=== PATIENT | female | born 1970 | race Caucasian/White ===

== ENCOUNTER 2017-10-27 12:24 | Emergency (ER) | payer OTHER ==
[2017-10-27 12:35] VITALS: TEMP 98; BMI 28.3
--- NOTE | 2017-10-27 13:06 | PDOC ---
Attending Attestation - Resident Resident Name: Emiliano Hurtado - HPI HPI: 10/27/17 17:07 Pt presents to the ED complaining of migraine that is consistent with, but worse than her typical migraine. Pain is graudal onset, frontal and severe. + photophobia. Denies fevers, but does complain of vomiting. Longstanding history of chronic migraine. Will check labs and * - Physicial Exam PE: 10/27/17 18:19 Agree with resident exam. Patient is alert and oriented. Lungs are clear. Heart has regular rate and rhythm. Neurologically intact. 10/27/17 18:25 - Medical Decision Making 10/27/17 18:30 Pt presents to the ED complaining of headache that is similar to her chronic migraine. Labs are within normal limits except for TSH. pain is resolved after reglan, toradol and benadryl. Will discharge home with PMd follow up.
[2017-10-27] MEDS ORDERED: SODIUM CHLORIDE 1,000 ML IV STA (13:18)
[2017-10-27] MEDS ORDERED: METOCLOPRAMIDE HCL INJECTION 10 MG/2 ML VIAL IVPUSH ONE ×2 (13:19→15:56)
[2017-10-27] MEDS ORDERED: KETOROLAC TROMETHAMINE 30 MG/1 ML VIAL IVPUSH ONE (13:19)
[2017-10-27] MEDS ORDERED: METOCLOPRAMIDE HCL INJECTION 10 MG/2 ML VIAL ONE ×2 (13:40→16:52)
[2017-10-27] MEDS ORDERED: KETOROLAC TROMETHAMINE 30 MG/1 ML VIAL ONE (13:40)
[2017-10-27 14:06] LABS: BASO % 0.7 % (0-2.0); EOS % 0.7 % (0-4.5); HEMOGLOBIN 12.5 GM/dL (10.7-15.3); MCH 30.1 pg (25.7-33.7); MEAN CELL VOLUME 91.2 fl (80-96); MEAN PLT VOLUME 7.7 fl (7.5-11.1); MONO % 5.8 % (3.8-10.2); NEUT % 75.8 % (42.8-82.8); PLATELET COUNT 427 K/MM3 (134-434); RBC 4.16 M/mm3 (3.60-5.2); RDW 14.4 % (11.6-15.6); WHITE BLOOD COUNT 9.1 K/mm3 (4.0-10.0)
[2017-10-27 14:25] LABS: INR 0.95 (0.82-1.09); PROTHROMBIN TIME (PATIENT) 10.7 SEC (9.98-11.88)
[2017-10-27 14:29] LABS: ALBUMIN 3.4 g/dl (3.4-5.0); ANION GAP 10 (8-16); BILIRUBIN,TOTAL 0.2 mg/dL (0.2-1.0); BLOOD UREA NITROGEN 12 mg/dL (7-18); CALCIUM 9.4 mg/dL (8.5-10.1); CHLORIDE 108 mmol/L (98-107); CO2 23 mmol/L (21-32); CREATININE 0.9 mg/dL (0.55-1.02); GLUCOSE,RANDOM 83 mg/dL (74-106); MAGNESIUM 2.6 mg/dL (1.8-2.4); POTASSIUM 4.2 mmol/L (3.5-5.1); SGOT/AST 19 U/L (15-37); SGPT/ALT 29 U/L (12-78); SODIUM 141 mmol/L (136-145); TOT PROT 7.4 g/dl (6.4-8.2)
[2017-10-27 14:32] LABS: ALK PHOS 90 U/L (45-117)
[2017-10-27] MEDS ORDERED: DEXAMETHASONE SOD PHOSPHATE 4 MG/1 ML VIAL IVPUSH ONE (15:57)
--- NOTE | 2017-10-27 15:58 | PDOC ---
History of Present Illness - General Chief Complaint: Headache Stated Complaint: HEADACHE Time Seen by Provider: 10/27/17 13:00 History Source: Patient Exam Limitations: No Limitations - History of Present Illness Initial Comments: 10/27/17 15:52 Patient is a 47F with history of migraines, and hypothyroidism is here today for headache and chest pain. The headache started three days ago and onset gradually. Patient states the headache is located around her right eye with associated photophobia and sound sensitivity. Denies nausea and vomiting. She is also complaining of chest pain for the past 2 days, waxing and waning in severity. It's located on the left side of her chest, worse with inspiration. No changes with rest or activity. Not tender to palpation. No history of blood clots. No swelling in her legs. No recent immobilization. No estrogen use. Patient states that she is very stressed from long hours at work. Past History - Past Medical History Allergies/Adverse Reactions: Allergies Allergy/AdvReac Type Severity Reaction Status Date / Time No Known Drug Allergies Allergy Verified 09/02/16 12:42 Home Medications: Ambulatory Orders Levothyroxine [Synthroid -] 175 mcg PO DAILY #0 tablet 07/24/13 Anemia: No COPD: No GI Disorders: Yes (Ulcer 10 yrs ago, taking nexium) HTN: Yes Thyroid Disease: Yes - Surgical History Cholecystectomy: Yes (10 yrs ago) - Immunization History Immunization Up to Date: Yes - Suicide/Smoking/Psychosocial Hx Smoking Status: Yes Smoking History: Current every day smoker Have you smoked in the past 12 months: Yes Number of Cigarettes Smoked Daily: 20 Information on smoking cessation initiated: No 'Breaking Loose' booklet given: 09/02/16 Hx Alcohol Use: No Drug/Substance Use Hx: No Substance Use Type: None Hx Substance Use Treatment: No Review of Systems - Review of Systems Comments:: 10/27/17 16:07 GENERAL/CONSTITUTIONAL: No fever or chills. No weakness. HEAD, EYES, EARS, NOSE AND THROAT: No change in vision. No sore throat. CARDIOVASCULAR: Positive for chest pain. Negative for shortness of breath RESPIRATORY: No cough, wheezing, or hemoptysis. GASTROINTESTINAL: No nausea, vomiting, diarrhea or constipation. GENITOURINARY: No dysuria, frequency, or change in urination. SKIN: No rash NEUROLOGIC: Positive for headache. Negative for vertigo, loss of consciousness, or change in strength/sensation. ENDOCRINE: No increased thirst. No abnormal weight change ALLERGIC/IMMUNOLOGIC: No hives or skin allergy. *Physical Exam - Vital Signs Last Vital Signs Temp Pulse Resp BP Pulse Ox 98.0 F 90 17 126/88 100 10/27/17 12:32 10/27/17 12:32 10/27/17 12:32 10/27/17 12:32 10/27/17 12:32 - Physical Exam Comments: 10/27/17 16:09 GENERAL: Awake, alert, and fully oriented, tearful PSYCH: Denies SI/HI HEAD: No signs of trauma, normocephalic, atraumatic EYES: PERRLA, EOMI, sclera anicteric, conjunctiva clear ENT: Auricles normal inspection, hearing grossly normal, nares patent, oropharynx clear without exudates. Moist mucosa LUNGS: No distress, speaks full sentences, clear to auscultation bilaterally HEART: Regular rate and rhythm, normal S1 and S2, no murmurs, rubs or gallops, peripheral pulses normal and equal bilaterally. EXTREMITIES: Normal inspection, Normal range of motion, no edema. No clubbing or cyanosis. NEUROLOGICAL: Cranial nerves II through XII grossly intact. Normal speech, normal gait, no focal sensorimotor deficits SKIN: Warm, Dry, normal turgor, no rashes or lesions noted. ED Treatment Course - LABORATORY CBC & Chemistry Diagram: 10/27/17 13:37 10/27/17 13:37 - ADDITIONAL ORDERS Additional order review: Laboratory Results 10/27/17 10/27/17 10/27/17 14:36 13:37 13:37 PT with INR 10.70 INR 0.95 Sodium 141 Potassium 4.2 Chloride 108 H Carbon Dioxide 23 Anion Gap 10 BUN 12 Creatinine 0.9 Creat Clearance w eGFR > 60 Random Glucose 83 Calcium 9.4 Magnesium 2.6 H Total Bilirubin 0.2 AST 19 ALT 29 Alkaline Phosphatase 90 Creatine Kinase 94 Troponin I < 0.02 Total Protein 7.4 Albumin 3.4 TSH Urine HCG, Qual Negative 10/27/17 13:30 PT with INR INR Sodium Potassium Chloride Carbon Dioxide Anion Gap BUN Creatinine Creat Clearance w eGFR Random Glucose Calcium Magnesium Total Bilirubin AST ALT Alkaline Phosphatase Creatine Kinase Troponin I Total Protein Albumin TSH 14.10 H Urine HCG, Qual 10/27/17 13:37 RBC 4.16 MCV 91.2 MCHC 33.0 RDW 14.4 MPV 7.7 Neutrophils % 75.8 Lymphocytes % 17.0 Monocytes % 5.8 Eosinophils % 0.7 Basophils % 0.7 - RADIOLOGY Radiology Studies Ordered: Category Date Time Status CHEST PA & LAT [RAD] Stat Radiology 10/27/17 13:18 Ordered - Medications Given in the ED: ED Medications Discontinued Medications Generic Name Dose Route Start Last Admin Trade Name Ashley PRN Reason Stop Dose Admin Diphenhydramine HCl 25 mg 10/27/17 13:19 10/27/17 14:16 Benadryl Injection - IVPB 10/27/17 13:20 25 mg ONCE ONE Administration Sodium Chloride 1,000 mls @ 1,000 mls/hr 10/27/17 13:18 10/27/17 13:45 Normal Saline - IV 10/27/17 14:17 1,000 mls/hr ASDIR STA Administration Ketorolac Tromethamine 30 mg 10/27/17 13:19 10/27/17 13:52 Toradol Injection - IVPUSH 10/27/17 13:20 30 mg ONCE ONE Administration Metoclopramide HCl 10 mg 10/27/17 13:19 10/27/17 13:45 Reglan Injection - IVPUSH 10/27/17 13:20 10 mg ONCE ONE Administration Medical Decision Making - Medical Decision Making 10/27/17 16:21 Patient is 47F with history of migraines and hypothyroidism here today with headache and chest pain. Vital signs stable and normal. Patient tearful and anxious at bedside. Covering eyes, obviously photosensitive. Chest pain is atypical story. Will treat headache with reglan, fluids, toradol, benadryl. Story not consistent with SAH. Will evaluate with cbc, cmp, trop, ekg, pt/inr, chest x-ray. Patient PERCs out. 10/27/17 16:25 Laboratory Tests 10/27/17 10/27/17 10/27/17 13:30 13:37 14:36 WBC 9.1 D Hgb 12.5 Hct 38.0 Plt Count 427 D TSH 14.10 H Urine HCG, Qual Negative CBC normal. Trop undetectable. TSH elevated to 14.10. Upreg negative. 10/27/17 16:25 CXR shows no acute cardiopulmonary process. Headache not relieved with first round of medication. Will treat with second round of reglan, mag. Will give decadron to prevent recurrence. 10/27/17 18:17 Patient reports feeling better, asking to go home. Will discharge with return precautions. Advised to follow up on her TSH levels with her PCP this week. Reports compliance with medications. *DC/Admit/Observation/Transfer Diagnosis at time of Disposition: Migraine - Discharge Dispostion Disposition: HOME Condition at time of disposition: Good Admit: No - Referrals Referrals: Jamshid Onofre MD [Primary Care Provider] - - Patient Instructions Printed Discharge Instructions: DI for Migraine Additional Instructions: You were seen today in the ED for headache and chest pain. On your labs, it was found that your TSH was elevated to 14. Please follow up with your primary care doctor this week. Please return if you have any new, worsening or concerning symptoms. - Post Discharge Activity Forms/Work/School Notes: Back to Work
--- NOTE | 2017-10-27 16:05 | EKG ---
Test Reason : Blood Pressure : / mmHG Vent. Rate : 073 BPM Atrial Rate : 073 BPM P-R Int : 134 ms QRS Dur : 084 ms QT Int : 396 ms P-R-T Axes : 047 005 051 degrees QTc Int : 436 ms NORMAL SINUS RHYTHM NORMAL ECG WHEN COMPARED WITH ECG OF 20-DEC-2013 19:56, NO SIGNIFICANT CHANGE WAS FOUND Confirmed by RUDY MORATAYA MD ([id number]) on 10/27/2017 4:05:27 PM Referred By: Confirmed By:RUDY MORATAYA MD
[2017-10-27] MEDS ORDERED: MAGNESIUM SULF 50% (8.12 MEQ/2 ML-1 GM VIAL) ONE (16:52)
[2017-10-27] MEDS ORDERED: DEXAMETHASONE SOD PHOSPHATE 10 MG/1 ML VIAL ONE (16:52)
[2017-10-27 19:38] VITALS: BP 137/80; PULSE 64
== END 2017-10-27 19:38 | disposition home or self-care (01) ==
LOC: SUPCPDRO 12:24 → JER 12:24
PROC: 3E033GC Introduction of Other Therapeutic Substance into Peripheral Vein, Percutaneous Approach (ICD-10-PCS; principal; 2017-10-27)
PROC: 3E033GC Introduction of Other Therapeutic Substance into Peripheral Vein, Percutaneous Approach (ICD-10-PCS; 2017-10-27)
PROC: 3E0333Z Introduction of Anti-inflammatory into Peripheral Vein, Percutaneous Approach (ICD-10-PCS; 2017-10-27)
PROC: 3E0333Z Introduction of Anti-inflammatory into Peripheral Vein, Percutaneous Approach (ICD-10-PCS; 2017-10-27)
PROC: 3E033GC Introduction of Other Therapeutic Substance into Peripheral Vein, Percutaneous Approach (ICD-10-PCS; 2017-10-27)
DX: G43.909 Migraine, unspecified, not intractable, without status migrainosus (principal); E03.9 Hypothyroidism, unspecified; F17.210 Nicotine dependence, cigarettes, uncomplicated; Z87.19 Personal history of other diseases of the digestive system
CPT/HCPCS: 36415; 71046-TC-FY; 80053; 82550; 83735; 84443; 84484; 84703; 85025; 85610; 93005; 93010; 99283-25

== ENCOUNTER 2018-11-23 07:12 | Emergency (ER) | payer OTHER ==
[2018-11-23 07:21] VITALS: TEMP 98.2; BMI 34.7
[2018-11-23] MEDS ORDERED: KETOROLAC TROMETHAMINE 60 MG/2 ML VIAL IM ONE (07:30)
--- NOTE | 2018-11-23 07:37 | PDOC ---
History of Present Illness - General Chief Complaint: Pain Stated Complaint: LEFT HAND PAIN Time Seen by Provider: 11/23/18 07:24 History Source: Patient Exam Limitations: Clinical Condition - History of Present Illness Initial Comments: 11/23/18 07:32 Patient with no significant past medical history present with complaining of 2 day history of pain to left hand with worsening pain to hand since overnight. Patient reported increased pain to left index finger with mild swelling to finger. Patient denies any trauma or injuries to finger. Patient denies having similar symptoms in the past. Timing/Duration: other (2 days) Past History - Past Medical History Allergies/Adverse Reactions: Allergies Allergy/AdvReac Type Severity Reaction Status Date / Time No Known Drug Allergies Allergy Verified 11/23/18 07:21 Home Medications: Ambulatory Orders Levothyroxine [Synthroid -] 175 mcg PO DAILY #0 tablet 07/24/13 Arm Brace [Wrist Brace] 1 each MC DAILY #1 each 11/23/18 Ibuprofen 800 mg PO Q8H PRN #20 tablet 11/23/18 Anemia: No COPD: No GI Disorders: Yes (Ulcer 10 yrs ago, taking nexium) HTN: Yes Thyroid Disease: Yes - Surgical History Cholecystectomy: Yes (10 yrs ago) - Immunization History Immunization Up to Date: Yes - Suicide/Smoking/Psychosocial Hx Smoking Status: Yes Smoking History: Current every day smoker Have you smoked in the past 12 months: Yes Number of Cigarettes Smoked Daily: 10 Information on smoking cessation initiated: Yes 'Breaking Loose' booklet given: 09/02/16 Hx Alcohol Use: No Drug/Substance Use Hx: No Substance Use Type: None Hx Substance Use Treatment: No Review of Systems - Review of Systems Able to Perform ROS?: Yes Is the patient limited Hebrew proficient: No Constitutional: No: Weakness HEENTM: No: Symptoms Reported Respiratory: No: Symptoms reported Cardiac (ROS): No: Symptoms Reported ABD/GI: No: Symptoms Reported Musculoskeletal: Yes: See HPI, Joint Swelling (mild swelling over MCP of left index finger), Muscle Pain (left hand with increased index finger pain). No: Muscle Weakness Integumentary: No: Bruising, Change in Color All Other Systems: Reviewed and Negative *Physical Exam - Vital Signs Last Vital Signs Temp Pulse Resp BP Pulse Ox 98.2 F 73 17 115/74 97 11/23/18 07:19 11/23/18 07:19 11/23/18 07:19 11/23/18 07:19 11/23/18 07:19 - Physical Exam Comments: 11/23/18 07:34 `GENERAL: Well developed, well nourished. Awake and alert in mild acute distress. CARDIOVASCULAR: Regular rate and rhythm. No murmurs, rubs, or gallops. PULMONARY: No evidence of respiratory distress. Lungs clear to auscultation bilaterally. No wheezing, rales or rhonchi. ABDOMINAL: Soft. Non-tender. Non-distended. No rebound or guarding. No organomegaly. Normoactive bowel sounds MUSCULOSKELETAL : mild tenderness over radial aspect of left hand with pain to thenar muscles and increased pain to left index finger with patient guarding finger. Mild swelling to the MCP of left index finger. Free range of motion of finger. No bony deformities SKIN: Warm and dry. Normal capillary refill. No rashes. No jaundice. NEUROLOGICAL: Alert, awake, appropriate. No motor deficits in the lower extremities. Gait is normal without ataxia. PSYCHIATRIC: Cooperative. Good eye contact. Appropriate mood and affect. General Appearance: Yes: Nourished, Appropriately Dressed, Mild Distress Moderate Sedation - Procedure Monitoring Vital Signs: Procedure Monitoring Vital Signs Temperature 98.2 F 11/23/18 07:19 Pulse Rate 73 11/23/18 07:19 Respiratory Rate 17 11/23/18 07:19 Blood Pressure 115/74 11/23/18 07:19 O2 Sat by Pulse Oximetry (%) 97 11/23/18 07:19 ED Treatment Course - RADIOLOGY Radiology Studies Ordered: Category Date Time Status FINGER(S) LEFT [RAD] Stat Radiology 11/23/18 07:29 Ordered HAND- LEFT [RAD] Stat Radiology 11/23/18 07:26 Ordered Medical Decision Making - Medical Decision Making 11/23/18 07:36 Patient with no significant past medical history present with complaining of pain to left hand and index finger without trauma or injury for 2 days which has been worsening overnight. Exam significant for moderate tenderness to left index finger with mild pain to thenar muscle of left hand. No pain to thumb all other fingers. Mild swelling over MCP joint of left index finger. X-ray of left hand and index finger ordered. Toradol 60 mg IM ordered for pain. Symptoms likely hand strain versus less likely stress fracture or finger. Treat based on imaging results. 03/21/19 08:26 X-ray of left hand and left index finger shows no acute pathology. Toradol 60 mg given for pain. Patient is stable for discharge on NSAIDs and support brace with orthopedist follow-up as needed. *DC/Admit/Observation/Transfer Diagnosis at time of Disposition: Left hand pain Strain of hand, left Qualifiers: Encounter type: initial encounter Qualified Code(s): S66.912A - Strain of unspecified muscle, fascia and tendon at wrist and hand level, left hand, initial encounter - Discharge Dispostion Disposition: HOME Condition at time of disposition: Stable Decision to Admit order: No - Prescriptions Prescriptions: Arm Brace [Wrist Brace] 1 each MC DAILY #1 each Ibuprofen 800 mg PO Q8H PRN #20 tablet PRN Reason: pains - Referrals Referrals: Eric Diaz MD [Staff Physician] - - Patient Instructions Printed Discharge Instructions: DI for Hand Pain Additional Instructions: X-rays of left hand shows no fracture or acute pathology. Your symptoms is likely from hand strain from overuse. Rest left hand for the next 3 days and wear prescribed wrist daily as needed. Follow-up with referred hand orthopedics if no improvement in 4 days - Post Discharge Activity Forms/Work/School Notes: Back to Work
[2018-11-23] MEDS ORDERED: KETOROLAC TROMETHAMINE 60 MG/2 ML VIAL ONE (07:48)
[2018-11-23 09:12] VITALS: BP 119/75; PULSE 69
== END 2018-11-23 09:12 | disposition home or self-care (01) ==
LOC: JER 07:12
PROC: 3E0233Z Introduction of Anti-inflammatory into Muscle, Percutaneous Approach (ICD-10-PCS; principal; 2018-11-23)
DX: S66.812A Strain of other specified muscles, fascia and tendons at wrist and hand level, left hand, initial encounter (principal); X58.XXXA Exposure to other specified factors, initial encounter; Y93.89 Activity, other specified; Y92.89 Other specified places as the place of occurrence of the external cause; Y99.8 Other external cause status
CPT/HCPCS: 73130-TC-LT-FY; 73140-TC-LT-FY; 99282-25

== ENCOUNTER 2019-07-14 21:07 | Emergency (ER) | payer OTHER ==
[2019-07-14 21:15] VITALS: BP 123/75; PULSE 83; TEMP 98.1; BMI 38.3
[2019-07-14] MEDS ORDERED: ACETAMINOPHEN 500 MG TABLET (FP) PO ONE (21:25)
[2019-07-14] MEDS ORDERED: ACETAMINOPHEN 500 MG TABLET (FP) ONE (21:26)
--- NOTE | 2019-07-14 21:37 | PDOC ---
History of Present Illness - General Chief Complaint: Back Pain Stated Complaint: BACK PAIN Time Seen by Provider: 07/14/19 21:23 - History of Present Illness Initial Comments: 07/14/19 21:36 49-year-old female with a past medical history of hypothyroidism and constipation presents for evaluation of right-sided mid back pain without any precipitating traumatic event urinary symptoms systemic symptoms or radiation of symptoms. Past History - Past Medical History Allergies/Adverse Reactions: Allergies Allergy/AdvReac Type Severity Reaction Status Date / Time No Known Drug Allergies Allergy Verified 11/23/18 07:21 Home Medications: Ambulatory Orders Levothyroxine [Synthroid -] 175 mcg PO DAILY #0 tablet 07/24/13 Arm Brace [Wrist Brace] 1 each MC DAILY #1 each 11/23/18 Ibuprofen 800 mg PO Q8H PRN #20 tablet 11/23/18 Cyclobenzaprine HCl [Flexeril 10 mg] 10 mg PO HS PRN #10 tablet 07/14/19 Ibuprofen [Motrin -] 600 mg PO TID #30 tablet 07/14/19 Anemia: No COPD: No GI Disorders: Yes (Ulcer 10 yrs ago, taking nexium) HTN: Yes Thyroid Disease: Yes - Surgical History Cholecystectomy: Yes (10 yrs ago) - Immunization History Immunization Up to Date: Yes - Psycho Social/Smoking Cessation Hx Smoking Status: Yes Smoking History: Never smoked Have you smoked in the past 12 months: No Number of Cigarettes Smoked Daily: 10 Information on smoking cessation initiated: No 'Breaking Loose' booklet given: 09/02/16 Hx Alcohol Use: No Drug/Substance Use Hx: No Substance Use Type: None Hx Substance Use Treatment: No Review of Systems - Review of Systems Musculoskeletal: Yes: Back Pain *Physical Exam - Vital Signs Last Vital Signs Temp Pulse Resp BP Pulse Ox 98.1 F 83 20 123/75 98 07/14/19 21:13 07/14/19 21:13 07/14/19 21:13 07/14/19 21:13 07/14/19 21:13 - Physical Exam Comments: 07/14/19 22:38 There is no midline tenderness moderate right-sided para thoracic musculature spasm exquisite tenderness. Lungs equal and clear bilaterally. ED Treatment Course - Medications Given in the ED: ED Medications Discontinued Medications Generic Name Dose Route Start Last Admin Trade Name Freq PRN Reason Stop Dose Admin Acetaminophen 1,000 mg 07/14/19 21:25 07/14/19 21:30 Tylenol - PO 07/14/19 21:26 1,000 mg ONCE ONE Administration Medical Decision Making - Medical Decision Making 07/14/19 22:38 Chest x-ray and right-sided rib x-ray show no evidence of fracture trauma or destructive process. This is a thoracic strain. I will have patient follow-up with neurosurgery for further evaluation and treatment. She does have a history of a prior rib fracture on my reading in the ER I do not appreciate a rib fracture. I will place her on a course of Flexeril and Motrin. 07/14/19 22:40 Discharge - Discharge Information Problems reviewed: Yes Clinical Impression/Diagnosis: Strain of mid-back Condition: Stable Disposition: HOME - Admission No - Follow up/Referral Referrals: Roni Chaparro MD, [facility] [Staff Physician] - - Patient Discharge Instructions Additional Instructions: I do not appreciate a rib fracture on your x-ray today. However formal reading will be done by the radiologist. Motrin and Flexeril as directed. This medication was sent to your pharmacy. Return to the emergency room for worsening symptoms and without fail please follow-up with neurosurgery for further evaluation and treatment options of your back pain. - Post Discharge Activity
== END 2019-07-14 22:41 | disposition home or self-care (01) ==
LOC: JERFT 21:07
DX: S29.012A Strain of muscle and tendon of back wall of thorax, initial encounter (principal); I10 Essential (primary) hypertension; E03.9 Hypothyroidism, unspecified; K59.00 Constipation, unspecified; Z87.19 Personal history of other diseases of the digestive system; X58.XXXA Exposure to other specified factors, initial encounter; Y93.89 Activity, other specified; Y92.89 Other specified places as the place of occurrence of the external cause
CPT/HCPCS: 71045-TC-FY; 71101-TC-RT-FY; 99281-25

== ENCOUNTER 2019-09-30 17:32 | Emergency (ER) | payer OTHER ==
[2019-09-30 17:53] VITALS: BP 125/91; PULSE 85; TEMP 98.3; BMI 34.4
--- NOTE | 2019-09-30 18:04 | PDOC ---
History of Present Illness - General Chief Complaint: Vaginal Bleeding Stated Complaint: VAGINAL BLEEDING/PAIN Time Seen by Provider: 09/30/19 18:01 History Source: Patient - History of Present Illness Timing/Duration: reports: getting worse Past History - Past Medical History Allergies/Adverse Reactions: Allergies Allergy/AdvReac Type Severity Reaction Status Date / Time No Known Drug Allergies Allergy Verified 11/23/18 07:21 Home Medications: Ambulatory Orders Levothyroxine [Synthroid -] 225 mcg PO DAILY 09/30/19 Anemia: No COPD: No GI Disorders: Yes (Ulcer 10 yrs ago, taking nexium) HTN: Yes Thyroid Disease: Yes - Surgical History Cholecystectomy: Yes (10 yrs ago) - Immunization History Immunization Up to Date: Yes - Psycho Social/Smoking Cessation Hx Smoking Status: Yes Smoking History: Never smoked Have you smoked in the past 12 months: No Number of Cigarettes Smoked Daily: 10 'Breaking Loose' booklet given: 09/02/16 Hx Alcohol Use: No Drug/Substance Use Hx: No Substance Use Type: None Hx Substance Use Treatment: No Review of Systems - Review of Systems Constitutional: Yes: Unexplained wgt Loss. No: Chills, Fever ABD/GI: No: Nausea, Vomiting, Abdominal cramping : Yes: Discharge. No: Symptoms Reported, Dysuria, Hematuria *Physical Exam - Vital Signs Last Vital Signs Temp Pulse Resp BP Pulse Ox 98.3 F 85 16 125/91 99 09/30/19 17:52 09/30/19 17:52 09/30/19 17:52 09/30/19 17:52 09/30/19 17:52 - Physical Exam General Appearance: Yes: Appropriately Dressed. No: Apparent Distress HEENT: positive: Normal Voice Neck: positive: Supple Respiratory/Chest: negative: Respiratory Distress Female Pelvic Exam: positive: normal external exam, cervical os closed, normal adnexa, discharge, vaginal bleeding, other (small amount foul smelling cervical discharge w/ trace BRB). negative: CMT, lesions, adnexal tenderness Gastrointestinal/Abdominal: positive: Soft. negative: Tender Integumentary: positive: Dry, Warm Neurologic: positive: Fully Oriented, Alert, Normal Mood/Affect Medical Decision Making - Medical Decision Making 09/30/19 18:02 49-year-old female, here with foul-smelling discharge on and off x1 month. States she continues to get monthly menses but has noticed that recently even her menstruation has a foul odor to it. Also complaining of about 20 to 30 pounds unintentional weight loss over the past several months. Patient states she has a history of abnormal Pap smears diagnosed while still residing in [place] but relocated to [place] 6 years ago and has since been lost to follow-up w/ [facility]. States when she tries to make an appointment with a [facility], she is unable to get someone on the phone and has to leave messages with no call backs. Patient denies any abdominal pain, nausea, vomiting, fever, chills or dysuria see exam Foul smelling vaginal discharge w/ unintentional weight loss in a patient with history of abnormal pap smears who has been lost to follow-up Concern for possible cervical malignancy Well iman and stable w/ benign abd and foul smelling mucoid discharge from OS, no gross cervical lesions -STD cxs sent -DC to f/u with [facility] at [facility] this week Discharge - Discharge Information Problems reviewed: Yes Clinical Impression/Diagnosis: Foul smelling vaginal discharge Condition: Good Disposition: HOME - Follow up/Referral Referrals: Dequan Mendez PA [Primary Care Provider] - Clement Sanchez MD [Staff Physician] - - Patient Discharge Instructions Additional Instructions: We sent off STD testing today which will return in 3 to 5 days. We will call you if anything is positive. Otherwise you can call us at [phone] In the meantime, a [facility] associate at [facility] will be calling you to arrange appointment for this coming week - Post Discharge Activity
[2019-09-30 19:05] LABS: PH,URINE 6.5 (5.0-8.0); URINE APPEARANCE Clear; URINE BILIRUBIN Negative (NEGATIVE); URINE COLOR Yellow; URINE GLUCOSE (UA) Negative (NEGATIVE); URINE KETONE Trace (NEGATIVE); URINE LEUK ESTERASE Negative (NEGATIVE); URINE NITRITE Negative (NEGATIVE); URINE PROTEIN Negative (NEGATIVE); URINE UROBILINOGEN 0.2 mg/dL (0.2-1.0)
[2019-09-30 19:07] LABS: EPI CELLS 11.2 /HPF (0-5/HPF); HYALINE CASTS 7.08 /lpf (0-8); URINE RBC 1.1 /hpf (0-4); URINE WBC 1.1 /hpf (0-5)
[2019-09-30 19:08] LABS: URINE BACTERIA 55.4 /hpf (NEGATIVE)
== END 2019-09-30 19:16 | disposition home or self-care (01) ==
LOC: JER 17:32
DX: N89.8 Other specified noninflammatory disorders of vagina (principal); I10 Essential (primary) hypertension; E03.9 Hypothyroidism, unspecified; Z90.49 Acquired absence of other specified parts of digestive tract
CPT/HCPCS: 36415; 81003; 84703; 87070; 87205; 87491; 87591; 99283-25

== ENCOUNTER 2019-10-12 20:14 | Emergency (ER) | payer OTHER ==
--- NOTE | 2019-10-12 20:18 | PDOC ---
Rapid Medical Evaluation Chief Complaint: Pain Time Seen by Provider: 10/12/19 20:16 Medical Evaluation: Allergies Allergy/AdvReac Type Severity Reaction Status Date / Time No Known Drug Allergies Allergy Verified 11/23/18 07:21 10/12/19 20:17 49 year old female with suprapubic pain/ vaginal pain. patient reports that shes unable to urinate. seen in this ER on 09/2619 late arriving result + gardanella vaginalis. patient denies being on treatment A: vaginal pain P; UA Urine culture Discharge Disposition - Diagnosis Vaginal pain - Referrals - Patient Instructions - Post Discharge Activity
[2019-10-12 20:34] VITALS: BP 121/69; PULSE 89; TEMP 98.2; BMI 34.2
[2019-10-12 20:51] LABS: URINE APPEARANCE CLOUDY; URINE BILIRUBIN 1+ (NEGATIVE); URINE COLOR DK YELLOW; URINE GLUCOSE (UA) NEGATIVE (NEGATIVE); URINE KETONE TRACE (NEGATIVE); URINE LEUK ESTERASE NEGATIVE (NEGATIVE); URINE NITRITE NEGATIVE (NEGATIVE); URINE PROTEIN NEGATIVE (NEGATIVE)
--- NOTE | 2019-10-12 20:55 | PDOC ---
Attending Attestation - Resident Resident Name: Feli Faye - ED Attending Attestation I have performed the following: I have examined & evaluated the patient, The case was reviewed & discussed with the resident, I agree w/resident's findings & plan - HPI HPI: 10/13/19 00:43 see resident hpi - Physicial Exam PE: 10/13/19 00:43 agree with resident exam - Medical Decision Making 10/13/19 00:43 49-year-old female with pelvic cramping and pain, recent urine cultures for gonorrhea chlamydia negative Exam positive for a grayish discharge Pelvic ultrasound consistent with small ovarian cyst CT scan of the abdomen and pelvis consistent with probable gastroenteritis Of note patient has asked IV to be removed and has been waiting in the waiting room for her results Will DC, due to persistent discharge will cover with Rocephin and Zithromax, DC on Flagyl for presumed bacterial vaginosis In regards to gastroenteritis, recommendations for hydration, patient has been tolerating p.o. She will follow-up with her primary care physician and [facility]
--- NOTE | 2019-10-12 20:55 | PDOC ---
History of Present Illness - General Chief Complaint: Pain Stated Complaint: ABD PAIN/CRAMPS Time Seen by Provider: 10/12/19 20:16 - History of Present Illness Initial Comments: HPI: 49yo F with PMH of hypothyroidism, abnormal pap smear >5 years ago, constipation presenting with lower abdominal pain x 5 hours. Patient states she was in this ER about three weeks ago for vaginal discharge. The discharge is quintero-white and has persisted. Patient reports long duration menstrual periods. LMP about five days ago. Received a call about 4-5 days ago reporting that she may have BV. Was set up with an spoon maker appointment on 10/23. Patient's pelvic pain is constant, worsening with certain movements. Has never had pain like this before. No urinary symptoms. Denies nausea or vomiting. Last bowel movement about three days ago. Has not had sexual intercourse in over nine months. Patient takes laxatives on a regular basis, but has not done so recently as she has been busy at work. No history of abdominal surgeries. Has not taken anything for her pain. No fevers, but endorsing chills. PCP: Dr. Jose Richter ROS: Constitutional: no fever, +chills HEENT: no throat pain, no dysphagia Cardiovascular: no chest pain, no palpitations Respiratory: no cough, no shortness of breath Gastrointestinal: +abdominal pain, no nausea Genitourinary: no dysuria, +vaginal discharge Musculoskeletal: no myalgia, no arthralgia Skin: no rash, no itching Neurologic: no headache, no weakness Psych: no agitation, no anxiety PE: General: Awake, alert, and fully oriented, in no acute distress Head: No signs of trauma Eyes: EOMI, sclera anicteric ENT: Moist mucus membranes Neck: Normal ROM, supple Lungs: Lungs clear, Normal breath sounds Cardio: Regular rhythm, S1 and S2 present Abdomen: Tender to palpation in lower abdomen. Soft, nondistended. No CVA tenderness Extremities: Normal range of motion, Distal pulses present SKIN: Warm, Dry, normal turgor Neurologic: Cranial nerves II through XII grossly intact. Normal speech Pelvic: External genitalia without erythema, exudate or discharge. Vaginal vault is with quintero-white discharge. Cervix is of normal color without lesion. The os is closed. There is no bleeding noted. Uterus is noted to be of appropriate size and nontender. Cervical motion tenderness is seen. No masses are palpated. Trapper Animal, Alondra Ken, present during entire pelvic exam ED Course/MDM: DDX including but not limited to bacterial vaginosus, ovarian cyst, endometriosis, fibroids, PID, appendicitis, diverticulitis Per chart review, GC negative in previous labwork Labs [facility] 10/12/19 20:55 Laboratory Tests 10/12/19 20:26 Urine Color Dk yellow Urine Appearance Cloudy Urine pH 5.0 D Ur Specific [place] 1.034 Urine Protein Negative Urine Glucose (UA) Negative Urine Ketones Trace H Urine Blood Negative Urine Nitrite Negative Urine Bilirubin 1+ H Urine Urobilinogen 1.0 Ur Leukocyte Esterase Negative UA negative for infection 10/12/19 22:33 CBC WBC 9.5 K/mm3 (4.0-10.0) 10/12/19 21:41 RBC 4.91 M/mm3 (3.60-5.2) 10/12/19 21:41 Hgb 14.9 GM/dL (10.7-15.3) 10/12/19 21:41 Hct 43.2 % (32.4-45.2) 10/12/19 21:41 MCV 87.9 fl (80-96) 10/12/19 21:41 MCH 30.2 pg (25.7-33.7) 10/12/19 21:41 MCHC 34.4 g/dl (32.0-36.0) 10/12/19 21:41 RDW 15.0 % (11.6-15.6) 10/12/19 21:41 Plt Count 340 K/MM3 (134-434) D 10/12/19 21:41 MPV 8.6 fl (7.5-11.1) D 10/12/19 21:41 Absolute Neuts (auto) 6.6 K/mm3 (1.5-8.0) 10/12/19 21:41 Neutrophils % 69.8 % (42.8-82.8) 10/12/19 21:41 Lymphocytes % 21.1 % (8-40) D 10/12/19 21:41 Monocytes % 7.7 % (3.8-10.2) 10/12/19 21:41 Eosinophils % 0.9 % (0-4.5) 02/07/20 21:41 Basophils % 0.5 % (0-2.0) 10/12/19 21:41 Nucleated RBC % 0 % (0-0) 10/12/19 21:41 No leukocytosis CMP Sodium 139 mmol/L (136-145) 10/12/19 21:41 Potassium 4.0 mmol/L (3.5-5.1) 10/12/19 21:41 Chloride 110 mmol/L (98-107) H 10/12/19 21:41 Carbon Dioxide 24 mmol/L (21-32) 10/12/19 21:41 Anion Gap 5 MMOL/L (8-16) L 10/12/19 21:41 BUN 7.9 mg/dL (7-18) 10/12/19 21:41 Creatinine 1.0 mg/dL (0.55-1.3) 10/12/19 21:41 Est GFR (CKD-EPI)AfAm 77.69 10/12/19 21:41 Est GFR (CKD-EPI)NonAf 67.04 10/12/19 21:41 Random Glucose 81 mg/dL (74-106) 10/12/19 21:41 Calcium 9.4 mg/dL (8.5-10.1) 10/12/19 21:41 Total Bilirubin 0.4 mg/dL (0.2-1) 10/12/19 21:41 AST 26 U/L (15-37) 10/12/19 21:41 ALT 39 U/L (13-61) 10/12/19 21:41 Alkaline Phosphatase 104 U/L (45-117) 10/12/19 21:41 Total Protein 8.2 g/dl (6.4-8.2) 10/12/19 21:41 Albumin 3.7 g/dl (3.4-5.0) 10/12/19 21:41 Beta HCG, Quant < 1.0 mIU/ml 10/12/19 21:41 Electrolytes unremarkable Cr normal No transaminitis negative US: "EXAM#: TYPE/EXAM: RESULT: [id number] US/TRANSVAGINAL ULTRASOUND US Transvaginal ultrasound Clinical information: pelvic pain The exam was performed utilizing transvaginal scanning. The uterus demonstrates no discrete myometrial pathology. A 3 cm anterior uterine leiomyoma described on a previous ultrasound exam of 03/17/2017 is difficult to appreciate on the current study. The endometrium is somewhat thickened measuring 1.7 cm which could be on a physiologic basis. Correlate with menstrual cycle phase. No free intraperitoneal fluid is noted. A 2 cm right ovarian follicle/cyst is noted. Several subcentimeter left ovarian follicles are seen. No Doppler evidence of ovarian torsion, sensitivity 70%. Impression: As noted above. " CT as read by imaging news correspondent: "FINDINGS: Focal scarring versus atelectasis in the medial right middle lobe. Normal-sized heart without pericardial effusion. Cholecystectomy with postsurgical prominence of the common bile duct. Mild hepatomegaly with hepatic steatosis. Unremarkable spleen, pancreas, and adrenals.Normal cortical enhancement in both kidneys. No renal masses. No renal or ureteral calculi and no hydronephrosis. Urinary bladder nondistended. Thickening of gastric wall. Mildly prominent small bowel loops which are fluid- filled without a clear zone of transition and fluid also noted in the cecum and ascending colon. Few diverticula of the descending colon without evidence of diverticulitis. No evidence of appendicitis. Normal caliber aorta. Retroaortic left renal vein. No ascites. Tiny umbilical hernia containing fat. Anteverted uterus with heterogeneous myometrium possibly due to uterine leiomyomas. Involuting cyst left ovary measuring 2.3 x 2.1 x 2.5 cm. No acute osseous changes. IMPRESSION: 1. Findings indicative of gastroenteritis. 2. Hepatomegaly with hepatic steatosis. 3. Involuting cyst in the left ovary. Other findings as above" No acute findings on US or CT Informed her to follow up regarding hepatmegaly and steatosis Copy of imaging reports given to patient Will cover with rocephin and azithromycin Course of flagyl for quintero-white discharge consistent with bacterial vaginosis Patient to follow up with PCP and spoon maker (has an appointment on 10/23/2019) Return precautions Stable for discharge 10/13/19 00:50 Past History - Past Medical History Allergies/Adverse Reactions: Allergies Allergy/AdvReac Type Severity Reaction Status Date / Time No Known Drug Allergies Allergy Verified 10/12/19 20:20 Home Medications: Ambulatory Orders Levothyroxine [Synthroid -] 225 mcg PO DAILY 09/30/19 metroNIDAZOLE [Flagyl -] 500 mg PO BID #14 tablet 10/13/19 Anemia: No COPD: No GI Disorders: Yes (Ulcer 10 yrs ago, taking nexium) HTN: Yes Thyroid Disease: Yes - Surgical History Cholecystectomy: Yes (10 yrs ago) - Immunization History Immunization Up to Date: Yes - Psycho Social/Smoking Cessation Hx Smoking Status: Yes Smoking History: Never smoked Have you smoked in the past 12 months: No Number of Cigarettes Smoked Daily: 10 'Breaking Loose' booklet given: 09/02/16 Hx Alcohol Use: No Drug/Substance Use Hx: No Substance Use Type: None Hx Substance Use Treatment: No *Physical Exam - Vital Signs Last Vital Signs Temp Pulse Resp BP Pulse Ox 98.2 F 89 18 121/69 98 10/12/19 20:16 10/12/19 20:16 10/12/19 20:16 10/12/19 20:16 10/12/19 20:16 ED Treatment Course - LABORATORY CBC & Chemistry Diagram: 10/12/19 21:41 10/12/19 21:41 - ADDITIONAL ORDERS Additional order review: Laboratory Results 10/12/19 20:26 Urine Color Dk yellow Urine Appearance Cloudy Urine pH 5.0 D Ur Specific [place] 1.034 Urine Protein Negative Urine Glucose (UA) Negative Urine Ketones Trace H Urine Blood Negative Urine Nitrite Negative Urine Bilirubin 1+ H Urine Urobilinogen 1.0 Ur Leukocyte Esterase Negative Discharge - Discharge Information Problems reviewed: Yes Clinical Impression/Diagnosis: Pelvic pain Disposition: HOME - Additional Discharge Information Prescriptions: metroNIDAZOLE [Flagyl -] 500 mg PO BID #14 tablet - Follow up/Referral Referrals: Jose Rcihter MD [Primary Care Provider] - - Patient Discharge Instructions Patient Printed Discharge Instructions: DI for Pelvic Pain Additional Instructions: You came into the emergency department for abdominal pain. Labs, ultrasound, and CT imaging did not indicate acute pathology. Your CT showed signs of an enlarged and fatty liver. A copy of the report was given to you. Follow up with your doctor regarding this finding. Antibiotics prescription sent to your pharmacy. Take as instructed. Do not drink alcohol while you are taking this medication. You can take [id number] tylenol or motrin for pain. Follow the instructions on the medication bottle. Follow-up with your primary care provider within 72 hours to discuss this ED visit and to further evaluate your symptoms. Call today or tomorrow morning and make an appointment. Your workup is not complete until you do so. Follow-up with your spoon maker provider to discuss this ED visit and to further evaluate your symptoms. Your workup is not complete until you do so. Immediate medical attention is required if you develop: high fevers, persistent nausea, vomiting, or any new or concerning symptoms. If you think you are having an emergency, call for emergency medical services or present to the emergency department right away. - Post Discharge Activity
[2019-10-12] MEDS ORDERED: ACETAMINOPHEN 325 MG TABLET (FP) PO ONE (21:35)
[2019-10-12] MEDS ORDERED: ACETAMINOPHEN 325 MG TABLET (FP) ONE (21:52)
[2019-10-12] MEDS ORDERED: ACETAMINOPHEN 1000 MG/100 ML VIAL (NON FORMULARY) IVPB ONE (21:54)
[2019-10-12] MEDS ORDERED: ACETAMINOPHEN INJECTION 100 ML IVPB ONE (22:19)
[2019-10-12 22:26] LABS: BASO % 0.5 % (0-2.0); EOS % 0.9 % (0-4.5); HEMATOCRIT 43.2 % (32.4-45.2); HEMOGLOBIN 14.9 GM/dL (10.7-15.3); LYMPH % 21.1 % (8-40); MCH 30.2 pg (25.7-33.7); MCHC 34.4 g/dl (32.0-36.0); MEAN CELL VOLUME 87.9 fl (80-96); MEAN PLT VOLUME 8.6 fl (7.5-11.1); MONO % 7.7 % (3.8-10.2); NEUT % 69.8 % (42.8-82.8); PLATELET COUNT 340 K/MM3 (134-434); RBC 4.91 M/mm3 (3.60-5.2); WHITE BLOOD COUNT 9.5 K/mm3 (4.0-10.0)
[2019-10-12 23:02] LABS: ALBUMIN 3.7 g/dl (3.4-5.0); ALK PHOS 104 U/L (45-117); ANION GAP 5 MMOL/L (8-16); BILIRUBIN,TOTAL 0.4 mg/dL (0.2-1); BLOOD UREA NITROGEN 7.9 mg/dL (7-18); CALCIUM 9.4 mg/dL (8.5-10.1); CHLORIDE 110 mmol/L (98-107); CO2 24 mmol/L (21-32); GLUCOSE,RANDOM 81 mg/dL (74-106); SGOT/AST 26 U/L (15-37); SGPT/ALT 39 U/L (13-61); SODIUM 139 mmol/L (136-145); TOT PROT 8.2 g/dl (6.4-8.2)
[2019-10-13] MEDS ORDERED: AZITHROMYCIN 500 MG TABLET PO ONE (00:39)
[2019-10-13] MEDS ORDERED: KETOROLAC TROMETHAMINE 30 MG/1 ML VIAL IM ONE (00:49)
[2019-10-13] MEDS ORDERED: AZITHROMYCIN 250 MG TABLET ONE (01:15)
[2019-10-13] MEDS ORDERED: KETOROLAC TROMETHAMINE 30 MG/1 ML VIAL ONE (01:16)
[2019-10-13] MEDS ORDERED: LIDOCAINE HCL 1%, 10 MG/ML (20ML VIAL) ONE (01:16)
== END 2019-10-13 02:34 | disposition home or self-care (01) ==
LOC: JER 20:14
PROC: 3E033NZ Introduction of Analgesics, Hypnotics, Sedatives into Peripheral Vein, Percutaneous Approach (ICD-10-PCS; principal; 2019-10-12)
PROC: 3E02329 Introduction of Other Anti-infective into Muscle, Percutaneous Approach (ICD-10-PCS; 2019-10-12)
PROC: 3E0233Z Introduction of Anti-inflammatory into Muscle, Percutaneous Approach (ICD-10-PCS; 2019-10-12)
DX: N76.0 Acute vaginitis (principal); B96.89 Other specified bacterial agents as the cause of diseases classified elsewhere; K52.9 Noninfective gastroenteritis and colitis, unspecified; N83.202 Unspecified ovarian cyst, left side; I10 Essential (primary) hypertension; E03.9 Hypothyroidism, unspecified; Z87.19 Personal history of other diseases of the digestive system
CPT/HCPCS: 36415; 74177-TC; 76830-TC; 80053; 81003; 84702; 85025; 87086; 96372; 96374; 99282-25; J0131; Q9967

== ENCOUNTER 2025-06-27 11:59 | Observation (INO) | payer OTHER ==
[2025-06-27 12:09] VITALS: BMI 43.9
[2025-06-27] MEDS ORDERED: methylPREDNISolone NA SUCC 125 MG/2 ML VIAL ONE (13:10)
[2025-06-27 13:12] LABS: MCHC 32.0 g/dl (32.2-35.5); MEAN CELL VOLUME 88.0 fl (79.4-94.8); MEAN PLT VOLUME 10.0 fl (9.4-12.3); RDW 13.8 % (12.3-16.6)
[2025-06-27] MEDS: SODIUM CHLORIDE 1,000 ML IV STA (13:26)
[2025-06-27] MEDS: methylPREDNISolone NA SUCC 125 MG/2 ML VIAL IVPB ONE (13:26)
[2025-06-27] MEDS: ALBUTEROL SO4 2.5/IPRATROPIUM 0.5 INH SOL 3 ML VIAL.NEB. NEB SCH ×2 (13:27→20:36)
[2025-06-27] MEDS: predniSONE 20 MG TABLET (UD) PO ONE (13:27)
[2025-06-27] MEDS ORDERED: ALBUTEROL SO4 2.5/IPRATROPIUM 0.5 INH SOL 3 ML VIAL.NEB. NEB ONE (13:31)
[2025-06-27 13:38] LABS: INR 1.02 (0.83-1.09); PROTHROMBIN TIME (PATIENT) 11.1 SEC (9.7-13.0)
[2025-06-27 13:41] LABS: ACTIVATED PTT 30.2 SECONDS (25.2-36.5)
[2025-06-27 13:42] LABS: BG HCT 44.0 % (32.4-45.2); VENOUS BASE EXCESS -2.6 mmol/L (-2-2); VENOUS O2 SATURATION 90.5 % (70-80); VENOUS PCO2 44.2 mmHg (38-52); VENOUS PH 7.339 (7.310-7.410)
[2025-06-27 13:55] LABS: LACTIC ACID 2.3 mmol/L (0.4-2.0)
[2025-06-27 14:10] LABS: GLUCOSE,RANDOM 94 mg/dL (74-106)
[2025-06-27 14:11] LABS: TOT PROT 7.4 g/dl (6.4-8.2)
[2025-06-27 14:12] LABS: CO2 24 mmol/L (21-32)
[2025-06-27 14:13] LABS: ALK PHOS 112 U/L (40-150)
[2025-06-27 14:16] LABS: CREATININE 0.82 mg/dL (0.55-1.3); SGOT/AST 37 U/L (5-34); SGPT/ALT 39 U/L (0-55)
[2025-06-27] MEDS: AZITHROMYCIN 250 MG TABLET PO ONE (18:29)
[2025-06-27] MEDS ORDERED: AZITHROMYCIN 500 MG TABLET ONE (18:37)
[2025-06-27 20:51] LABS: N-TERMINAL BNP 38.1 pg/mL (0-299.9)
[2025-06-27] MEDS: ACETAMINOPHEN 325 MG TABLET (FP) PO ONE (21:26)
[2025-06-28] MEDS: ALBUTEROL SO4 2.5/IPRATROPIUM 0.5 INH SOL 3 ML VIAL.NEB. NEB PRN (04:47)
[2025-06-28] MEDS: BENZONATATE 200 MG CAPSULE PO PRN (05:30)
[2025-06-28] MEDS: IPRATROPIUM BR 0.02% 0.5 MG/2.5 ML VIAL.NEB. NEB SCH (08:11)
[2025-06-28] MEDS: LEVALBUTEROL HCL 0.63 MG/3 ML VIAL.NEB. IH SCH (08:12)
[2025-06-28] MEDS: AZITHROMYCIN 250 MG TABLET PO SCH (09:23)
[2025-06-28] MEDS: methylPREDNISolone NA SUCC 40 MG/1 ML VIAL IVPUSH SCH (09:23)
[2025-06-28] MEDS: ENOXAPARIN NA (PORCINE) 40 MG/0.4 ML DISP.SYRIN SQ SCH (09:23)
[2025-06-28] MEDS: NICOTINE 7 MG/24 HOURS TOPICAL PATCH TD SCH (09:23)
[2025-06-28 09:26] VITALS: BP 142/72; PULSE 110; RESP 20; TEMP 98.1
[2025-06-28 09:37] LABS: MCHC 31.8 g/dl (32.2-35.5); MEAN CELL VOLUME 88.9 fl (79.4-94.8); MEAN PLT VOLUME 10.5 fl (9.4-12.3); RDW 14.0 % (12.3-16.6)
[2025-06-28 10:20] LABS: GLUCOSE,RANDOM 160.0 mg/dL (74-106); TOT PROT 7.8 g/dl (6.4-8.2)
[2025-06-28 10:21] LABS: CO2 20.0 mmol/L (21-32)
[2025-06-28 10:23] LABS: ALK PHOS 107.0 U/L (40-150)
[2025-06-28 10:26] LABS: CREATININE 0.78 mg/dL (0.55-1.3); SGOT/AST 31.0 U/L (5-34); SGPT/ALT 39.0 U/L (0-55)
== END 2025-06-28 10:25 | disposition home or self-care (01) ==
LOC: JER 11:59 → JERBED 16:33 → J5S 18:49
PROVIDERS: ADMIT Student in an Organized Health Care Education/Training Program
PROC: 3E0F7GC Introduction of Other Therapeutic Substance into Respiratory Tract, Via Natural or Artificial Opening (ICD-10-PCS; principal; 2025-06-27)
PROC: 3E033GC Introduction of Other Therapeutic Substance into Peripheral Vein, Percutaneous Approach (ICD-10-PCS; 2025-06-27)
PROC: 3E0337Z Introduction of Electrolytic and Water Balance Substance into Peripheral Vein, Percutaneous Approach (ICD-10-PCS; 2025-06-27)
DX: R09.02 Hypoxemia (principal); R06.00 Dyspnea, unspecified; E66.812 Obesity, class 2; R07.89 Other chest pain; F17.210 Nicotine dependence, cigarettes, uncomplicated
CPT/HCPCS: 36415; 71046-TC-FY; 71275-TC; 80053; 82550; 82803; 83605; 83735; 83880; 84100; 84484; 85025; 85027; 85610; 85730; 87040; 87637-QW; 93005; 93010; 94640; 94761; 96361; 96374; 96376; 99291; G0378; Q9967